=== PATIENT | female | born 1985 | race Two or more races ===

== ENCOUNTER 2016-06-29 05:20 | Day surgery (SDC) | payer OTHER ==
[2016-06-26 12:24] VITALS: BMI 24.3
[2016-06-29] MEDS ORDERED: ACETAMINOPHEN 325 MG TABLET (FP) PO PRN (09:13)
[2016-06-29] MEDS ORDERED: oxyCODONE HCL 5 MG TABLET PO PRN (09:13)
[2016-06-29] MEDS ORDERED: IBUPROFEN 400 MG TABLET (FP) PO PRN (09:13)
--- NOTE | 2016-06-29 09:13 | HP ---
History & Physical Update - History History: No Change - Physical Physical: No Change - Assessment Assessment: No Change - Plan Plan: No Change
[2016-06-29] MEDS ORDERED: PROPOFOL 20 ML ONE (12:58)
[2016-06-29] MEDS ORDERED: MIDAZOLAM HCL 2 MG/2 ML SINGLE DOSE VIAL ONE (12:58)
[2016-06-29] MEDS ORDERED: KETOROLAC TROMETHAMINE 30 MG/1 ML VIAL ONE (12:58)
[2016-06-29] MEDS ORDERED: ONDANSETRON 4 MG/2 ML VIAL IVPUSH PRN (13:40)
[2016-06-29] MEDS ORDERED: LACTATED RINGERS SOLUTION 1,000 ML IV SCH (13:45)
[2016-06-29] MEDS ORDERED: ACETAMINOPHEN INJECTION 100 ML IVPB ONE (14:14)
[2016-06-29] MEDS ORDERED: ACETAMINOPHEN 1000 MG/100 ML VIAL (NON FORMULARY) IVPB ONE (15:00)
[2016-06-29 16:15] LABS: BASOPHIL 0.5 % (0-2.0); EOSINOPHIL 2.9 % (0-4.5); MCH 22.9 pg (25.7-33.7); MCHC 31.2 g/dl (32.0-36.0); MEAN CELL VOLUME 73.4 fl (80-96); MEAN PLT VOLUME 8.1 fl (7.5-11.1); NEUTROPHILS 38.3 % (42.8-82.8); PLATELET COUNT 210 K/MM3 (134-434); RDW 17.9 % (11.6-15.6)
[2016-06-29 16:52] VITALS: TEMP 97.5
--- NOTE | 2016-06-29 17:46 | OP ---
Operative Note - Note: Operative Date: 06/29/16 Pre-Operative Diagnosis: Menorrhagia. Submucosal myoma. endometrial polyps Operation: Hysteroscopic myomectomy. Suction DC Post-Operative Diagnosis: Same as Pre-op Surgeon: Shabnam Culp Anesthesia: General Estimated Blood Loss (mls): 50 Operative Report Dictated: Yes
[2016-06-29 19:12] VITALS: BP 116/74; PULSE 66
[2016-06-29 19:20] LABS: MCH 23.1 pg (25.7-33.7); MCHC 31.5 g/dl (32.0-36.0); MEAN CELL VOLUME 73.2 fl (80-96); MEAN PLT VOLUME 8.4 fl (7.5-11.1); PLATELET COUNT 232 K/MM3 (134-434); WHITE BLOOD COUNT 6.3 K/mm3 (4.0-10.0)
--- NOTE | 2016-07-01 13:55 | PATH ---
Surgical Pathology Report Patient Name: MIRELLA KASPER Med. Rec. #: [id number] /Age/Gender: 1985 (Age: 30) / F Account: [id number] Location: [facility] Taken: 06/29/2016 Received: 06/30/2016 Reported: 07/01/2016 Physicians: Shabnam Culp M.D. Specimen(s) Received UTERINE CONTENTS & FIBROIDS Clinical History Submucosal myoma Final Diagnosis FIBROIDS AND CONTENTS OF UTERUS, HYSTEROSCOPIC MYOMECTOMY, DILATION AND CURETTAGE: FRAGMENTS OF BENIGN SMOOTH MUSCLE AND OVERLYING ENDOMETRIUM WITH SECRETORY FEATURES SUGGESTIVE OF FRAGMENTS OF SUBMUCOSAL LEIOMYOMA/ADENOMYOMA. Electronically Signed Emeterio Pemberton M.D. Gross Description Received in formalin labeled "fibroids and contents of uterus" is a 2 g, 5.0 x 3.3 x 0.4 cm aggregate of lockhart, irregular, firm to rubbery portions of tissue, consistent with morcellated fibroids. The specimen is admixed with lockhart-brown soft tissue fragments and blood clot. The specimen is entirely submitted in 4 cassettes. /06/30/2016 saudi/06/30/2016
--- NOTE | 2016-07-27 20:27 | OP ---
DATE OF OPERATION: 06/29/2016 PREOPERATIVE DIAGNOSIS: Menorrhagia, submucosal myoma, endometrial polyps. OPERATION: Hysteroscopic myomectomy, suction dilation and curettage. POSTOPERATIVE DIAGNOSIS: Menorrhagia, submucosal myoma, endometrial polyps. SURGEON: Shabnam Culp M.D. ANESTHESIA: General. ESTIMATED BLOOD LOSS: 50 mL. DESCRIPTION OF PROCEDURE: Patient was taken to the operating room, placed in dorsal lithotomy position. Prepped and draped in the usual sterile fashion. Timeout was performed in accordance with hospital regulation after general anesthesia had been given. Speculum was placed in the vagina, anterior lip of the cervix grasped with single tooth tenaculum. Cervix then dilated to accommodate the operative hysteroscope. Operative hysteroscope was inserted and visualization revealed multiple submucosal myomas and endometrial polyps. Cautery was then done, used to remove the endometrial polyps and the submucosal myoma. Multiple removals, enucleation of the myomas was done. After sufficient removal of the endometrial polyps and submucosal myomas, suction dilation and curettage was then performed and endometrial cavity appeared to be more normal. All instruments were removed. Estimated blood loss was 50 mL. Patient tolerated procedure well, was taken to recovery room in stable condition. [place] [id number]
== END 2016-06-29 19:05 | disposition home or self-care (01) ==
LOC: JASU-SURG 05:20
PROVIDERS: ATTEND Obstetrics & Gynecology
PROC: 0UDB8ZX Extraction of Endometrium, Via Natural or Artificial Opening Endoscopic, Diagnostic (ICD-10-PCS; principal; 2016-06-29 12:15)
PROC: 0UB98ZZ Excision of Uterus, Via Natural or Artificial Opening Endoscopic (ICD-10-PCS; 2016-06-29 12:15)
DX: N92.0 Excessive and frequent menstruation with regular cycle (principal); D25.0 Submucous leiomyoma of uterus; N84.0 Polyp of corpus uteri
CPT/HCPCS: 36415; 84703; 85025; 85027; 88305-TC; 94760